=== PATIENT | female | born 1980 | race Caucasian/White ===

== ENCOUNTER 2019-07-09 13:07 | Emergency (ER) | payer OTHER, SELFPAY ==
--- NOTE | ~2019-07-09 | XR_ITS ---
EXAMINATION: XR ankle LT min 3V DATE: 07/09/2019 13:29 INDICATION: Pain and swelling after fall TECHNIQUE: Anteroposterior, lateral, mortise, and additional oblique view of the ankle were obtained. COMPARISON: None. FINDINGS: There is lateral ankle soft tissue swelling. No fracture, dislocation, or subluxation is id entified. IMPRESSION: 1. Ankle soft tissue swelling without acute osseous abnormality. Reviewed, dictated and finalized at location A.
[2019-07-09 13:11] VITALS: BP 139/91; PULSE 85; RESP 18; TEMP 36.5; O2SAT 98
--- NOTE | 2019-07-09 14:13 | ED.GENADULT ---
HPI - General Adult General Chief complaint: Extremity Injury, Lower <Juan Majano PA-C - Last Filed: 07/09/19 14:17> Stated complaint: ankle injury <Juan Majano PA-C - Last Filed: 07/09/19 14:17> Time Seen by Provider: 07/09/19 13:11 <Juan Majano PA-C - Last Filed: 07/09/19 14:17> Source: patient <Juan Majano PA-C - Last Filed: 07/09/19 14:17> Mode of arrival: ambulatory <Juan Majano PA-C - Last Filed: 07/09/19 14:17> Limitations: no limitations <Juan Majano PA-C - Last Filed: 07/09/19 14:17> History of Present Illness HPI narrative: Patient is a 39-year-old female who presents to emergency department for evaluation of left ankle injury that occurred after miss stepping and rolling the ankle with resultant bruising swelling and tenderness along the lateral aspect of the ankle patient denies other injuries or complaints patient has not had anything for pain presents per private vehicle <Juan Majano PA-C - Last Filed: 07/09/19 14:17> Related Data Allergies/adverse reactions: Allergies Allergy/AdvReac Type Severity Reaction Status Date / Time No Known Allergies Allergy Verified 07/09/19 13:15 <Juan Majano PA-C - Last Filed: 07/09/19 14:17> Review of Systems Review of Systems: Narrative: CONSTITUTIONAL: Denies fever, chills, or sweats. SKIN: Positive for bruising and swelling MUSCULOSKELETAL: Positive for left ankle pain NEUROLOGIC: Denies numbness, or weakness. <Juan Majano PA-C - Last Filed: 07/09/19 14:17> PMFSH Social History Social History: Social History Gender identity (if verbalized by the patient): Female <Juan Majano PA-C - Last Filed: 07/09/19 14:17> Exam Narrative: Exam Narrative: GENERAL: Well-appearing, well-nourished, and in no acute distress. HEAD: Normocephalic, atraumatic. EYES: PERRLA and EOMI. ENT: Nares clear, no rhinorrhea or epistaxis. Mucous membranes moist. EXTREMITIES: Tenderness of the left lateral ankle joint SKIN: Warm, dry, no rash. Bruising and swelling of the lateral aspect of the left ankle joint NEURO: No focal deficits. Alert and oriented x3. Neurovascularly intact PSYCH: Normal mood and affect. <BEN Bell Last Filed: 07/09/19 14:17> Course Course Emergency Course: Patient in the room in no distress aware of case findings treatment plan and diagnosis agreeing to follow-up as directed <Juan Majano PA-C - Last Filed: 07/09/19 14:17> Vital Signs Vital signs: Vital Signs Temperature 36.5 C 07/09/19 13:11 Pulse Rate 85 07/09/19 13:11 Respiratory Rate 18 07/09/19 13:11 Blood Pressure 139/91 H 07/09/19 13:11 Pulse Oximetry 98 07/09/19 13:11 Temperature 36.5 C 07/09/19 13:11 Pulse Rate 85 07/09/19 13:11 Respiratory Rate 18 07/09/19 13:11 Blood Pressure 139/91 H 07/09/19 13:11 Pulse Oximetry 98 07/09/19 13:11 <Juan Majano PA-C - Last Filed: 07/09/19 14:17> Vital Signs Temperature 36.5 C 07/09/19 13:11 Pulse Rate 85 07/09/19 13:11 Respiratory Rate 18 07/09/19 13:11 Blood Pressure 139/91 H 07/09/19 13:11 Pulse Oximetry 98 07/09/19 13:11 Temperature 36.5 C 07/09/19 13:11 Pulse Rate 85 07/09/19 13:11 Respiratory Rate 18 07/09/19 13:11 Blood Pressure 139/91 H 07/09/19 13:11 Pulse Oximetry 98 07/09/19 13:11 <Bhavana Stone MD - Last Filed: 07/09/19 14:29> Medical Decision Making MDM Narrative Medical decision making narrative: Patients injury or pain is consistent with musculoskeletal etiology. No signs of neurological or vascular compromise on exam. Compartments and tisues are soft without signs of compartment syndrome. Pain is felt appropriate for further evaluation on an outpatient basis. <Juan Majano PA-C - Last Filed: 07/09/19 14:17> Vital Signs Vital Signs: Vital
== END 2019-07-09 14:40 | disposition home or self-care (01) ==
PROVIDERS: Emergency Provider Emergency Medicine; PCP Family Medicine
DX: S93.402A Sprain of unspecified ligament of left ankle, initial encounter (principal); S96.912A Strain of unspecified muscle and tendon at ankle and foot level, left foot, initial encounter; X50.9XXA Other and unspecified overexertion or strenuous movements or postures, initial encounter
CPT/HCPCS: 73610; 99283